=== PATIENT | female | born 1995 | race Hispanic/Latino ===

== ENCOUNTER 2018-07-04 02:05 | Emergency (ER) | payer OTHER ==
[2018-07-04 02:49] VITALS: TEMP 98.1; O2SAT 100; BMI 25.0
[2018-07-04 02:59] LABS: URINE BILIRUBIN NEGATIVE (NEGATIVE); URINE BLOOD NEGATIVE (NEGATIVE); URINE GLUCOSE (UA) NEGATIVE (NEGATIVE); URINE LEUKOCYTE ESTERASE NEGATIVE Leu/uL (NEGATIVE); URINE PROTEIN NEGATIVE mg/dL (<30 mg/dL); URINE UROBILINOGEN 0.2 E.U./dL (<1 E.U./dL)
[2018-07-04 03:02] LABS: URINE APPEARANCE CLEAR (CLEAR)
[2018-07-04 03:03] LABS: URINE COLOR YELLOW (YELLOW)
--- NOTE | 2018-07-04 03:16 | ED PDOC ---
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 Patient reports 1 week late on menstrual period, believes to be . Patient notes also experiencing pressured abdominal pain (even when not urinating), however denies any fever, chills, vomiting, hematuria, or any other complaints at this time. Time/Duration: < week (4 days) Past Medical History - Provider Review Nursing Documentation Reviewed: Yes - Psychiatric Hx Psychophysiologic Disorder: No Hx Substance Use: No - Anesthesia Hx Anesthesia: No Family/Social History - Physician Review Nursing Documentation Reviewed: Yes Family/Social History: No Known Family HX Smoking Status: Former Smoker Hx Alcohol Use: Yes Frequency of alcohol use: Few days per week Hx Substance Use: No Allergies/Home Meds Allergies/Adverse Reactions: Allergies No Known Allergies Allergy (Verified 07/04/18 02:29) Home Medications: Home Meds Medication Instructions Recorded Confirmed No Known Home Med 07/04/18 07/04/18 Review of Systems - Physician Review All systems were reviewed & negative as marked: Yes - Review of Systems Constitutional: absent: Fevers, Night Sweats Gastrointestinal: Abdominal Pain (pressure-like). absent: Vomiting Genitourinary Female: Dysuria. absent: Hematuria Physical Exam Vital Signs Reviewed: Yes Vital Signs Temp Pulse Resp BP Pulse Ox 07/04/18 02:20 98.1 F 79 83 H 124/72 100 Temperature: Afebrile Blood Pressure: Normal Pulse: Regular Respiratory Rate: Normal Appearance: Positive for: Well-Appearing, Non-Toxic, Comfortable Pain Distress: None Mental Status: Positive for: Alert and Oriented X 3 - Systems Exam Head: Present: Atraumatic, Normocephalic Pupils: Present: PERRL Extroacular Muscles: Present: EOMI Conjunctiva: Present: Normal Mouth: Present: Moist Mucous Membranes Neck: Present: Normal Range of Motion Respiratory/Chest: Present: Clear to Auscultation, Good Air Exchange. No: Respiratory Distress, Accessory Muscle Use Cardiovascular: Present: Regular Rate and Rhythm, Normal S1, S2. No: Murmurs Abdomen: No: Tenderness, Distention, Peritoneal Signs Back: Present: Normal Inspection Upper Extremity: Present: Normal Inspection. No: Cyanosis, Edema Lower Extremity: Present: Normal Inspection. No: Edema Neurological: Present: GCS=15, CN II-XII Intact, Speech Normal Skin: Present: Warm, Dry, Normal Color. No: Rashes Psychiatric: Present: Alert, Oriented x 3, Normal Insight, Normal Concentration Medical Decision Making ED Course and Treatment: 07/04/18 03:15 Impression: 22 year old female with dysuria and pressured abdominal pain. Plan: -- Transvaginal Ultrasound -- Labs -- POC urine Test -- Urine Culture -- Reassess and disposition Progress Notes: 07/04/2018 05:30 Transvaginal Ultrasound IMPRESSION: Single live intrauterine gestation. No abnormality seen. Dictator: Pippa Aranda MD Results discussed with patient- SLIUP noted on ultrasound. No UTI noted. Advised tylenol for pain and followup with cable installer repairer. - Lab Interpretations Lab Results: Urine Color Yellow (YELLOW) 07/04/18 02:37 Urine Appearance Clear (CLEAR) 07/04/18 02:37 Urine pH 6.0 (4.7-8.0) 07/04/18 02:37 Ur Specific [place] <= 1.005 (1.005-1.035) 07/04/18 02:37 Urine Protein Negative mg/dL (<30 mg/dL) 07/04/18 02:37 Urine Glucose (UA) Negative mg/dL (NEGATIVE) 07/04/18 02:37 Urine Ketones 15 mg/dL (NEGATIVE) H 07/04/18 02:37 Urine Blood Negative (NEGATIVE) 07/04/18 02:37 Urine Nitrate Negative (NEGATIVE) 07/04/18 02:37 Urine Bilirubin Negative (NEGATIVE) 07/04/18 02:37 Urine Urobilinogen 0.2 E.U./dL (<1 E.U./dL) 07/04/18 02:37 Ur Leukocyte Esterase Negative Bee/uL (NEGATIVE) 07/04/18 02:37 - RAD Interpretation Radiology Orders: 07/04/18 02:58 TRANSVAGINAL [US] Stat - Scribe Statement The provider has reviewed the documentation as recorded by the Brentibeloise Hennessy Provider Scribe Attestation: All medical record entries made by the Scribe were at my direction and personally dictated by me. I have reviewed the chart and agree that the record accurately reflects my personal performance of the history, physical exam, medical decision making, and the department course for this patient. I have also personally directed, reviewed, and agree with the discharge instructions and disposition. Disposition/Present on Arrival - Present on Arrival Any Indicators Present on Arrival: No History of DVT/PE: No History of Uncontrolled Diabetes: No Urinary Catheter: No History of Decub. Ulcer: No History Surgical Site Infection Following: None - Disposition Have Diagnosis and Disposition been Completed?: Yes Diagnosis: Abdominal pain during Disposition: HOME/ ROUTINE Disposition Time: 05:43 Condition: STABLE Discharge Instructions (ExitCare): Stomach Pain in Early Additional Instructions: TAIWO FROST, thank you for letting us take care of you today. Your provider was Silke Mathias MD and you were treated for UTI. The emergency medical care you received today was directed at your acute symptoms. If you were prescribed any medication, please fill it and take as directed. It may take several days for your symptoms to resolve. Return to the Emergency Department if your symptoms worsen, do not improve, or if you have any other problems. Please contact your doctor or call one of the physicians/clinics you have been referred to that are listed on the Patient Visit Information form that is included in your discharge packet. Bring any paperwork you were given at discharge with you along with any medications you are taking to your follow up visit. Our treatment cannot replace ongoing medical care by a primary care provider outside of the emergency department. Thank you for allowing the [facility] team to be part of your care today. If you had an X-Ray or CT scan: A Radiologist will review the ED reading if any change in treatment is needed we will contact you. If you had a blood, urine, or wound culture: It will take several days for the results, if any change in treatment is needed we will contact you. If you had an STI test: It will take 48 hours for the results. Please call after 1 week if you have not heard back. Forms: [employer] (Tongan)
[2018-07-04 03:32] LABS: ALB/GLOB RATIO 1.3 (1.1-1.8); ALBUMIN 3.8 g/dL (3.0-4.8); ALT/SGPT 15 U/L (7-56); AST/SGOT 19 U/L (14-36); BLOOD UREA NITROGEN 11 mg/dL (7-21); CALCIUM 8.6 mg/dL (8.4-10.5); GFR NON-AFRICAN AMERICAN > 60
[2018-07-04 03:45] LABS: BASO # 0.03 K/mm3 (0.0-2.0); BASO % 0.3 % (0.0-3.0); EOS # 0.1 (0.0-0.7); EOS % 0.7 % (1.5-5.0); HEMOGLOBIN 12.8 g/dL (12.0-16.0); LYMPH # 3.6 (1.2-3.4); MEAN CORPUSCULAR HEMOGLOBIN 29.8 pg (25.0-35.0); MEAN CORPUSCULAR HGB CONC 33.2 g/dl (31.0-37.0); MEAN PLATELET VOLUME 9.2 fl (7.0-11.0); MONO # 0.6 (0.1-0.6); MONO % 4.8 % (1.0-6.0); RBC 4.29 10^6/uL (3.5-6.1); RED CELL DISTRIBUTION WIDTH 12.5 % (11.5-14.5); WHITE BLOOD COUNT 11.6 10^3/uL (4.5-11.0)
[2018-07-04 03:51] VITALS: RESP 18
[2018-07-04 05:45] VITALS: BP 125/73; PULSE 75
--- NOTE | 2018-07-04 09:59 | US ---
Date of service: 07/04/2018 Indication: , abd pain Comparison: None available Technique: Transvaginal pelvic ultrasound Findings: The uterus measures approximately 8.4 x 3.9 x 6.5 cm. There is a single intrauterine fetus present. The gestational sac measures 1.0 cm and is compatible with a gestational age of 5 weeks 0 days. The crown-rump length measures 0.2 cm and is compatible with a gestational age of 5 weeks 5 days. Positive cardiac flicker/activity. heart rate was not obtained. The right ovary measures 3.0 x 1.9 x 3.2 cm. The left ovary measures 3.1 x 2.1 x 2.5 cm. Blood flow was demonstrated to both ovaries. Impression: Single intrauterine with estimated gestational age 5 weeks 0 days by gestational sac calculation and 5 weeks 5 days by crown-rump length calculation. Positive cardiac flicker/activity. heart rate was not obtained. Advise an anomaly screen at 16-18 weeks gestational age Preliminary impression was provided by [facility].
== END 2018-07-04 05:43 | disposition home or self-care (01) ==
LOC: ED 02:05
DX: O26.891 Other specified pregnancy related conditions, first trimester (principal); Z3A.01 Less than 8 weeks gestation of pregnancy